=== PATIENT | female | born 2005 | race Caucasian/White ===

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

== ENCOUNTER 2025-01-14 20:57 | Emergency (ER) | payer BC ==
[~2025-01-14] VITALS: Ht 157.5 cm; Wt 59.0 kg
[~2025-01-14 20:57] MED LIST changes: +NITR100C6 PO; +ONDA4TAB11 PO
[2025-01-14] MEDS ORDERED: AMOX-430 PO (21:31)
[2025-01-14] MEDS ORDERED: ONDA4TAB5 PO (21:31)
[2025-01-14 21:38] VITALS: BP 115/75; TEMP 98; O2SAT 98
== END 2025-01-14 21:39 | disposition home or self-care (01) ==
LOC: ER 21:05
DX: J32.9 Chronic sinusitis, unspecified (principal); B34.9 Viral infection, unspecified; R09.81 Nasal congestion; R11.2 Nausea with vomiting, unspecified; J45.909 Unspecified asthma, uncomplicated; Z79.52 Long term (current) use of systemic steroids